=== PATIENT | male | born 1995 | race Asian ===

== ENCOUNTER 2016-09-15 14:21 | Emergency (ER) | payer OTHER ==
[~2016-09-15] VITALS: Ht 180.3 cm; Wt 55.0 kg
[2016-09-15 15:36] VITALS: BP 133/79
== END 2016-09-15 15:36 | disposition home or self-care (01) ==
LOC: ED 14:21
DX: S01.21XD Laceration without foreign body of nose, subsequent encounter (principal); X58.XXXD Exposure to other specified factors, subsequent encounter; Y99.8 Other external cause status; Y92.89 Other specified places as the place of occurrence of the external cause